=== PATIENT | male | born 1995 | race Caucasian/White ===

== ENCOUNTER 2017-07-23 08:40 | Emergency (ER) | payer MEDICAID ==
[~2017-07-23] VITALS: Ht 180.3 cm; Wt 98.0 kg
[2017-07-23] MEDS ORDERED: DEXAMETHASONE 4 MG TABLET ONE (09:21)
[2017-07-23 09:23] VITALS: BP 121/76
[2017-07-23] MEDS ORDERED: DEXAMETHASONE 4 MG TABLET PO ONE (09:30)
== END 2017-07-23 09:53 | disposition home or self-care (01) ==
LOC: ED 09:02
DX: J02.8 Acute pharyngitis due to other specified organisms (principal)
CPT/HCPCS: 99283